=== PATIENT | male | born 1975 | race Caucasian/White ===

== ENCOUNTER 2017-02-11 21:07 | Emergency (ER) | payer SELFPAY ==
[2017-02-11 21:22] VITALS: BP 134/85
--- NOTE | 2017-02-11 21:23 | ED Physician Documentation ---
Sore Throat/Dental Pain - HISTORIAN Historian: patient - HPI Chief Complaint: Dental Pain Onset: days ago (yesterday) Associated Symptoms: moderate. denies: fever, chills, sore throat Worsened By: other (pressure, sucking on anything) Relieved By: orl gel helps some, Advil hleps some Further Comments: yes - ROS CONST: no problems - PAST HX Past History: none Immunizations: referred to PCP Allergies/Adverse Reactions: Allergies Allergy/AdvReac Type Severity Reaction Status Date / Time No Known Allergies Allergy Verified 02/11/17 21:28 Home Medications: Ambulatory Orders Medication Instructions Recorded Amoxicillin [Trimox] 500 mg PO TID #30 capsule 02/11/17 traMADol HCL [Ultram] 50 mg PO Q6H #10 tablet 02/11/17 - SOCIAL HX Smoking History: greater than 1 pack/day Alcohol Use: rarely Drug Use: none - FAMILY HX Family History: Yes - REVIEWED ASSESSMENTS Nursing Assessment Reviewed: Yes Vitals Reviewed: Yes Dental Pain Physical Exam - EXAM General Appearance: alert, mild distress Eyes: eyes nml inspection Mouth/Throat: lips nml, gums nml, pharynx nml, voice nml, no drooling, dental tenderness (right lower back molar), gum swelling around teeth Ear/Nose: nml inspection Respiratory: no resp. distress, breath sounds nml CVS: reg. rate & rhythm, heart sounds nml Neuro/Psych: other (mentation normal) Discharge Clincal Impression: Pain, dental Prescriptions: Amoxicillin [Trimox] 500 mg PO TID #30 capsule traMADol HCL [Ultram] 50 mg PO Q6H #10 tablet Referrals: Primary Doctor,No [Primary Care Provider] - 2 Days Additional Instructions: Take some Aleve and or Tylenol on a regulr basis . Supplement with tramadol as needed for pain. Take amoxil 500mg 3 times a day. Make an appointment with dentist for further evaluation. Do not drive while under to influence of toradal. Condition: Stable Disposition: 01 HOME, SELF-CARE Decision to Admit: NO Date of Decison to Admit: 02/11/17 Decision Time: 21:35
[2017-02-11] MEDS ORDERED: AMOXICILLIN 500 MG CAPSULE PO ONE (21:28)
[2017-02-11] MEDS ORDERED: KETOROLAC TROMETHAMINE 60 MG/2 ML VIAL IM ONE (21:28)
== END 2017-02-11 21:58 | disposition home or self-care (01) ==
LOC: ED 21:07
DX: K08.89 Other specified disorders of teeth and supporting structures (principal)
CPT/HCPCS: 96372; 99283; J1885